=== PATIENT | male | born 1975 | race African-American/Black ===

== ENCOUNTER 2019-09-03 12:00 | Day surgery (SDC) | payer MEDICAID ==
[~2019-09-03] VITALS: Ht 180.3 cm; Wt 119.0 kg
[~2019-09-03 12:00] MED LIST: CALCIUM CARBONATE; CLEOCIN HC150 MG/CAP PO; FOLATE PO; FOLIC ACID 11 MG/TA1 PO; LEVAQUIN 5500 MG/TA1 PO; LOPRESSOR 550 MG/TAB PO; NEPHROCAP PO; TYLENOL 325MG325 MG PO; VITAMIN D31000 IU
[2019-09-03 13:01] LABS: HEMATOCRIT 40.4 % (42.0-52.0); HEMOGLOBIN 12.8 g/dl (13.5-18.0); MEAN CELL VOLUME 91 fl (80.0-100.0); MEAN CORPUSCULAR HEMOGLOBIN 29 pg (27.0-31.0); MEAN CORPUSCULAR HGB CONC 32 g/dl (33.0-37.0); MEAN PLATELET VOLUME 9.5 fl (7.4-10.4); PLATELET COUNT 345 K/mm3 (130-400); RED BLOOD COUNT 4.45 M/mm3 (4.20-5.60); REDCELL DISTRIBUTION WIDTH-CV 18.6 % (11.5-14.5)
[2019-09-03 13:02] LABS: INR 1.3 (0.8-3.0); PROTHROMBIN TIME 15.1 SECONDS (9.7-12.8)
[2019-09-03 13:04] LABS: CALCIUM 8.4 mg/dL (8.4-10.2); CREATININE, serum 1.21 (0.66-1.25); PARTIAL THROMBOPLASTIN TIME 28.5 SECONDS (26.0-37.0)
[2019-09-03 13:10] LABS: POTASSIUM 2.7 mmol/L (3.4-5.0)
[2019-09-03] MEDS ORDERED: PRILOSEC 20MG20 MG PO (13:13)
[2019-09-03] MEDS ORDERED: DEMADEX10 MG PO (13:14)
[2019-09-03] MEDS ORDERED: K-TAB10 PO (13:16)
[2019-09-03 13:18] VITALS: BP 132/109; PULSE 109
[2019-09-03] MEDS ORDERED: ALDACTONE 25MG25 M1 PO (13:48)
[2019-09-03] MEDS ORDERED: COREG 6.256.25 MG/TA PO (13:49)
[2019-09-03 13:50] VITALS: BP 138/106; PULSE 109
[2019-09-03] MEDS ORDERED: K-DUR20 MEQ PO ×2 (13:50→13:51)
--- NOTE | 2019-09-03 14:15 | NUR ---
Dr. Keen has been in to discuss poc with pt. Heart cath postponed today due to hypokalemia. pt was given 40 meq po potassium in express and was given instructions to take 40 meq tonight and then bid x [address] Keen. . Dose then will be 20 meq bid x 7 days. pt instructed to f/u with cardiology office in 1 week. I reviewed pt's discharge meds with him and encouraged him to call cardiology office with any questions. IV to left wrist was dc'd with cath intact, dressing was applied. pt ambulatory to exit with no problem.
== END 2019-09-03 14:25 | disposition home or self-care (01) ==
LOC: COL.CAR 12:00
PROVIDERS: Internal Medicine Cardiovascular Disease
DX: R06.00 Dyspnea, unspecified (principal); I11.0 Hypertensive heart disease with heart failure; I50.20 Unspecified systolic (congestive) heart failure; E78.5 Hyperlipidemia, unspecified; F17.210 Nicotine dependence, cigarettes, uncomplicated; Z88.8 Allergy status to other drugs, medicaments and biological substances; Z53.8 Procedure and treatment not carried out for other reasons